=== PATIENT | female | born 1980 | race African-American/Black ===

== ENCOUNTER 2017-04-11 10:37 | Emergency (ER) | payer MEDICAID ==
[~2017-04-11] VITALS: Ht 170.2 cm; Wt 91.0 kg
[2017-04-11 11:08] VITALS: BP 119/57
== END 2017-04-11 13:40 | disposition home or self-care (01) ==
LOC: ER 13:31
DX: M79.672 Pain in left foot (principal)
CPT/HCPCS: 73620; 99284